=== PATIENT | male | born 1990 | race Asian ===

== ENCOUNTER 2020-05-07 23:42 | Emergency (ER) | payer BC ==
[2020-05-08] MEDS ORDERED: Ibuprofen 800 MG TAB ONE (00:27)
--- NOTE | 2020-05-08 07:41 | RAD ---
XR Chest Pa Lat STANDARD History: Chest pain Comparison: None. Findings: Lungs are clear. No pneumothorax or effusion. Cardiac silhouette and mediastinal contours a re within normal limits. Impression: No acute intrathoracic abnormality.
== END 2020-05-08 00:35 | disposition home or self-care (01) ==
LOC: MADERS 23:42
DX: R07.82 Intercostal pain (principal); Z87.891 Personal history of nicotine dependence
CPT/HCPCS: 71046